=== PATIENT | male | born 1995 | race Native Hawaiian/Other Pacific Islander ===

== ENCOUNTER 2017-05-12 21:29 | Emergency (ER) | payer OTHER ==
[2017-05-12 22:19] VITALS: BP 119/76
[2017-05-13 00:01] LABS: Basophils % (Auto) 1.6 % (0.0-1.8); Eosinophils % (Auto) 1.1 % (0.0-4.3); Hematocrit 43.2 % (35.5-45.6); Hemoglobin 14.9 gm/dl (11.8-15.2); Mean Corpuscular HGB Conc 34 % (32-34); Mean Corpuscular Hemoglobin 30 pg (28-32); Mean Corpuscular Volume 86 fl (84-94); Platelet Count 269 K/mm3 (140-440); Red Blood Count 5.01 M/mm3 (3.65-5.03); Red Cell Distribution Width 12.6 % (13.2-15.2); White Blood Count 10.5 K/mm3 (4.5-11.0)
[2017-05-13 00:36] LABS: Anion Gap 21 mmol/L; Blood Urea Nitrogen 16 mg/dL (9-20); Calcium 9.8 mg/dL (8.4-10.2); Carbon Dioxide 24 mmol/L (22-30); Chloride 101.3 mmol/L (98-107); Glucose 85 mg/dL (75-100); Potassium 3.8 mmol/L (3.6-5.0); Sodium 142 mmol/L (137-145)
[2017-05-13 03:47] LABS: Bilirubin,Urine NEG (Negative); Blood,Urine NEG (Negative); Ketones,Urine NEG (Negative); Leukocyte Esterase,Urine NEG (Negative); Mucus,Urine 1+ /HPF; Nitrite,Urine NEG (Negative); Protein,Urine <15 mg/dL mg/dL (Negative); Urobilinogen,Urine < 2.0 mg/dL (<2.0)
--- NOTE | 2017-05-13 07:25 | Emergency Department Report ---
- General Chief complaint: Skin Rash Stated complaint: EAR PAIN Time Seen by Provider: 05/13/17 04:35 Source: patient Mode of arrival: Ambulatory Limitations: No Limitations - History of Present Illness Initial comments: 21-year-old male with a past medical history of depression presents to the hospital complaining of rash 6 months. Patient has had a discoid scaly pruritic erythematous rash 6 months. Patient was seen by another ER and prescribed a topical cream. Patient has used cream 1 month without improvement. Patient does not follow with PMD/indirect sales exec/or specialist. He does not know the name of his most recently prescribed cream. Patient reports possible fever approximately 4 days ago. Patient also having itching and pain to his ear canals as well. - Related Data Previous Rx's Medication Instructions Recorded Last Taken Type HYDROcodone/APAP 5-325 [[place] 1 each PO Q8HR PRN #15 tablet 05/10/14 Unknown Rx 5/325] Promethazine [Phenergan TAB] 25 mg PO Q6H PRN #20 tablet 05/10/14 Unknown Rx Ranitidine HCl [Ranitidine 150mg 150 mg PO BID #60 cap 05/10/14 Unknown Rx Cap] Acetaminophen/Codeine 1 tab PO Q6H PRN #20 tab 12/02/14 Unknown Rx [Acetaminophen-Codeine #3 TAB] Hydrocortisone 2.5% [Hytone 2.5% 1 applicatio TP TID #1 tube 12/02/14 Unknown Rx CREAM] Ibuprofen [Motrin] 600 mg PO Q8H PRN #40 tablet 12/02/14 Unknown Rx Ibuprofen [Motrin] 800 mg PO Q8HR PRN #30 tablet 05/13/17 Unknown Rx Ketoconazole 2% [Nizoral] 1 applicatio TP BID 28 Days 05/13/17 Unknown Rx Allergies Allergy/AdvReac Type Severity Reaction Status Date / Time No Known Allergies Allergy Unverified 05/10/14 14:15 Abscess Boil HPI - HPI Chief Complaint: Skin Rash Stated Complaint: EAR PAIN Time Seen by Provider: 05/13/17 04:35 Home Medications: Previous Rx's Medication Instructions Recorded Last Taken Type HYDROcodone/APAP 5-325 [[place] 1 each PO Q8HR PRN #15 tablet 05/10/14 Unknown Rx 5/325] Promethazine [Phenergan TAB] 25 mg PO Q6H PRN #20 tablet 05/10/14 Unknown Rx Ranitidine HCl [Ranitidine 150mg 150 mg PO BID #60 cap 05/10/14 Unknown Rx Cap] Acetaminophen/Codeine 1 tab PO Q6H PRN #20 tab 12/02/14 Unknown Rx [Acetaminophen-Codeine #3 TAB] Hydrocortisone 2.5% [Hytone 2.5% 1 applicatio TP TID #1 tube 12/02/14 Unknown Rx CREAM] Ibuprofen [Motrin] 600 mg PO Q8H PRN #40 tablet 12/02/14 Unknown Rx Ibuprofen [Motrin] 800 mg PO Q8HR PRN #30 tablet 05/13/17 Unknown Rx Ketoconazole 2% [Nizoral] 1 applicatio TP BID 28 Days 05/13/17 Unknown Rx Allergies/Adverse Reactions: Allergies Allergy/AdvReac Type Severity Reaction Status Date / Time No Known Allergies Allergy Unverified 05/10/14 14:15 ED Review of Systems ROS: Stated complaint: EAR PAIN Other details as noted in HPI Comment: All other systems reviewed and negative Other: Constitutional: As per HPI Eyes: No eye pain visual changes ENT: No ear pain or throat pain Neck: Denies pain Respiratory: Denies cough wheezing shortness of breath Cardiovascular: Denies chest pain, palpitations, syncope GI: Denies abdominal pain, nausea, vomiting, diarrhea : Denies dysuri Musculoskeletal: Denies back pain, joint swelling Skin: As per HPI Neurologic: Denies headache, numbness, weakness ED Past Medical Hx - Past Medical History Previous Medical History?: Yes Hx Psychiatric Treatment: Yes (depression) - Surgical History Past Surgical History?: No - Social History Smoking Status: Never Smoker Substance Use Type: None - Medications Home Medications: Home Medications Medication Instructions Recorded Confirmed Last Taken Type HYDROcodone/APAP 5-325 [[place] 1 each PO Q8HR PRN #15 tablet 05/10/14 Unknown Rx 5/325] Promethazine [Phenergan TAB] 25 mg PO Q6H PRN #20 tablet 05/10/14 Unknown Rx Ranitidine HCl [Ranitidine 150mg 150 mg PO BID #60 cap 05/10/14 Unknown Rx Cap] Acetaminophen/Codeine 1 tab PO Q6H PRN #20 tab 12/02/14 Unknown Rx [Acetaminophen-Codeine #3 TAB] Hydrocortisone 2.5% [Hytone 2.5% 1 applicatio TP TID #1 tube 12/02/14 Unknown Rx CREAM] Ibuprofen [Motrin] 600 mg PO Q8H PRN #40 tablet 12/02/14 Unknown Rx Ibuprofen [Motrin] 800 mg PO Q8HR PRN #30 tablet 05/13/17 Unknown Rx Ketoconazole 2% [Nizoral] 1 applicatio TP BID 28 Days 05/13/17 Unknown Rx ED Physical Exam - General Limitations: No Limitations - Other Other exam information: General: No limitations, patient is alert in no acute distress Head exam: Atraumatic, normocephalic Eyes exam: Sensitivity with speculum touching the inner canal with some scaly erythematous rash in the canal ENT: Moist mucous membrane, normal oropharynx Neck exam: Normal inspection, full range of motion, no meningismus nontender Respiratory exam: Clear to auscultation bilateral, no wheezes, rales, crackles Cardiovascular: Normal rate and rhythm, normal heart sounds Abdomen: Soft, nondistended, and nontender, with normal bowel sounds, no rebound, or guarding Extremity: Full range of motion normal inspection no deformity Back: Normal Inspection, full range of motion, no tenderness Neurologic: Alert, oriented x3, cranial nerves intact, no motor or sensory deficit Psychiatric: normal affect, normal mood Skin: Generalized scaly erythematous discoid rash. Apparently started in the mid superior gluteal fold area 6 months ago then spread. Lesions have not disappeared and continued to spread. No warmth or purulent lesions ED Course Vital Signs 05/12/17 05/12/17 22:18 22:56 Temperature 98.9 F 98.9 F Pulse Rate 92 H 92 H Respiratory 20 18 Rate Blood Pressure 119/76 Blood Pressure 119/76 [Left] O2 Sat by Pulse 97 97 Oximetry ED Medical Decision Making - Lab Data Result diagrams: 05/12/17 23:12 05/12/17 23:12 Lab Results 05/12/17 05/12/17 05/13/17 Range/Units 23:12 23:12 03:16 WBC 10.5 (4.5-11.0) K/mm3 RBC 5.01 (3.65-5.03) M/mm3 Hgb 14.9 (11.8-15.2) gm/dl Hct 43.2 (35.5-45.6) % MCV 86 (84-94) fl MCH 30 (28-32) pg MCHC 34 (32-34) % RDW 12.6 L (13.2-15.2) % Plt Count 269 (140-440) K/mm3 Lymph % (Auto) 37.2 H (13.4-35.0) % [place] % (Auto) 7.2 (0.0-7.3) % Eos % (Auto) 1.1 (0.0-4.3) % Baso % (Auto) 1.6 (0.0-1.8) % Lymph # 3.9 (1.2-5.4) K/mm3 [place] # 0.8 (0.0-0.8) K/mm3 Eos # 0.1 (0.0-0.4) K/mm3 Baso # 0.2 H (0.0-0.1) K/mm3 Seg Neutrophils % 52.9 (40.0-70.0) % Seg Neutrophils # 5.6 (1.8-7.7) K/mm3 Sodium 142 (137-145) mmol/L Potassium 3.8 (3.6-5.0) mmol/L Chloride 101.3 (98-107) mmol/L Carbon Dioxide 24 (22-30) mmol/L Anion Gap 21 mmol/L BUN 16 (9-20) mg/dL Creatinine 0.8 (0.8-1.5) mg/dL Estimated GFR > 60 ml/min BUN/Creatinine Ratio 20.00 % Glucose 85 (75-100) mg/dL Calcium 9.8 (8.4-10.2) mg/dL Urine Color Yellow (Yellow) Urine Turbidity Clear (Clear) Urine pH 5.0 (5.0-7.0) Ur Specific [place] 1.018 (1.003-1.030) Urine Protein <15 mg/dl (Negative) mg/dL Urine Glucose (UA) Neg (Negative) mg/dL Urine Ketones Neg (Negative) mg/dL Urine Blood Neg (Negative) Urine Nitrite Neg (Negative) Urine Bilirubin Neg (Negative) Urine Urobilinogen < 2.0 (<2.0) mg/dL Ur Leukocyte Esterase Neg (Negative) Urine WBC (Auto) 2.0 (0.0-6.0) /HPF Urine RBC (Auto) 1.0 (0.0-6.0) /HPF U Epithel Cells (Auto) < 1.0 (0-13.0) /HPF Urine Mucus 1+ /HPF - Medical Decision Making Unfortunately patient is unable to tell me the name of the topical cream he was recently prescribed so that I may possibly choose a different treatment. He will be placed on anti-fungal medication however rash can be due to another cause (see differential). I stressed the importance of outpatient follow-up with a indirect sales exec for this ongoing complaint at is not improving with ED treatments. - Differential Diagnosis psoriasis, eczema, tinea corpus, pityriasis, lupus Critical Care Time: No Critical care attestation.: If time is entered above; I have spent that time in minutes in the direct care of this critically ill patient, excluding procedure time. ED Disposition Clinical Impression: Discoid rash Disposition: TO HOME OR SELFCARE Is pt being admited?: No Does the pt Need Aspirin: No Condition: Stable Instructions: Tinea Corporis (ED) Additional Instructions: You're being treated for ringworm however, the exact cause of your rash unknown at this time. Rash has been ongoing for 6 months and has failed ER treatment recommendations. It is very important that you follow up with the a primary care doctor and a indirect sales exec to rule out autoimmune diseases. Prescriptions: Ibuprofen [Motrin] 800 mg PO Q8HR PRN #30 tablet PRN Reason: Pain Ketoconazole 2% [Nizoral] 1 applicatio TP BID 28 Days Referrals: PRIMARY MD EDUARDO [Primary Care Provider] - 3-5 Days [facility] [Provider Group] - 3-5 Days Oscar Guo MD [Other] - 3-5 Days Time of Disposition: 07:29
== END 2017-05-13 07:55 | disposition home or self-care (01) ==
LOC: ED 21:29
DX: R21 Rash and other nonspecific skin eruption (principal)
CPT/HCPCS: 36415; 80048; 81001; 85025; 99283